=== PATIENT | female | born 1985 | race African-American/Black ===

== ENCOUNTER 2016-09-06 08:09 | Emergency (ER) | payer BC ==
[~2016-09-06] VITALS: Ht 175.3 cm; Wt 65.8 kg
--- NOTE | 2016-09-06 08:10 | NUR ---
PT PRESENTED TO THE ER WITH A C/O ABD PAIN, N/V SINCE 299. PT ARRIVED VIA WC AND WENT TO BED #3. PT WAS PLACED ON THE MONITOR AND CONTINUOUS PULSE OX. JOSE GLYNN AT THE BEDSIDE TRIAGING PT.
[2016-09-06] MEDS ORDERED: IV NS 0.9% 1,000 ML ONE (08:38)
[2016-09-06] MEDS ORDERED: ONDANSETRON HCL/PF 4 MG/2 ML VIAL ONE ×2 (08:39→09:25)
[2016-09-06] MEDS ORDERED: HALOPERIDOL LACTATE INJ 5 MG/ML VIAL ONE (08:39)
[2016-09-06] MEDS ORDERED: IV SET PRIMARY PUMP SET 1 EA INFUS.SET MC ONE (08:39)
[2016-09-06 08:47] LABS: BASOPHILS % (AUTO) 0.2 % (0.0-2.0); EOSINOPHILS # (AUTO) 0.1 /CMM (0.0-0.7); EOSINOPHILS % (AUTO) 1.1 % (0.0-6.0); HEMATOCRIT 39 % (33-45); HEMOGLOBIN 12.9 g/dL (11.5-14.8); LYMPHOCYTES # (AUTO) 2.4 /CMM (0.8-4.8); LYMPHOCYTES % (AUTO) 19.9 % (20.0-44.0); MEAN CORPUSCULAR HEMOGLOBIN 31 PG (26.0-33.0); MEAN CORPUSCULAR HGB CONC 33 g/dl (31.0-36.0); MEAN CORPUSCULAR VOLUME 94 fL (82-100); MONOCYTES # (AUTO) 0.6 /CMM (0.1-1.30); MONOCYTES % (AUTO) 5.1 % (2.0-12.0); NEUTROPHILS % (AUTO) 73.7 % (43.0-81.0); PLATELET COUNT (AUTO) 264 /CMM (150-450); RDW COEFFICIENT OF VARIATION 14.6 (11.5-15.0); RED BLOOD CELL COUNT(AUTO) 4.13 MIL/uL (4.0-5.2); WHITE BLOOD COUNT (AUTO) 12.2 K/uL (4.3-11.0)
[2016-09-06] MEDS ORDERED: HALOPERIDOL LACTATE INJ 5 MG/ML VIAL IV ONE (09:00)
[2016-09-06] MEDS ORDERED: IV NS 0.9% 1,000 ML BAG IV ONE (09:00)
[2016-09-06] MEDS ORDERED: ONDANSETRON HCL/PF 4 MG/2 ML VIAL IVP ONE (09:00)
[2016-09-06 09:16] LABS: CREATININE 0.8 mg/dL (0.6-1.3); POTASSIUM 3.6 mmol/L (3.5-5.1)
[2016-09-06 09:21] LABS: BILIRUBIN,DIRECT 0.1 mg/dL (0.0-0.2); BILIRUBIN,TOTAL 0.3 mg/dL (0.2-1.0); TOTAL PROTEIN, SERUM 7.6 g/dL (6.4-8.2)
[2016-09-06] MEDS ORDERED: KETOROLAC TROMETHAMINE INJ 30 MG/ML VIAL ONE (09:26)
--- NOTE | 2016-09-06 09:26 | NUR ---
PT IS GIVING A URINE SAMPLE.
[2016-09-06] MEDS ORDERED: KETOROLAC TROMETHAMINE INJ 30 MG/ML VIAL IV ONE (09:30)
[2016-09-06] MEDS ORDERED: ONDANSETRON HCL/PF - ER 4 MG/2 ML VIAL IV ONE (09:30)
--- NOTE | 2016-09-06 09:46 | NUR ---
IV removed. Catheter intact and site benign. Pressure and 4x4 applied to site. No bleeding noted. Patient discharged to home in stable condition. Written and verbal after care instructions given. Patient verbalizes understanding of instruction AND RX. PT LEFT VIA WC. VSS.
[2016-09-06 09:48] VITALS: BP 138/89
== END 2016-09-06 09:49 | disposition home or self-care (01) ==
LOC: ER 08:11
DX: G43.A0 Cyclical vomiting, in migraine, not intractable (principal); R11.0 Nausea; D21.9 Benign neoplasm of connective and other soft tissue, unspecified
CPT/HCPCS: 36415; 76700-TC; 80048-TC; 80076-TC; 83690-TC; 84703-TC; 85025-TC; A4606; J1630; J1885; J2405; J7030; Z7610

== ENCOUNTER 2017-01-14 22:28 | Emergency (ER) | payer BC, MEDICAID ==
[~2017-01-14] VITALS: Ht 167.6 cm; Wt 59.0 kg
[2017-01-14] MEDS ORDERED: ONDANSETRON HCL/PF 4 MG/2 ML VIAL IVP ONE (23:00)
[2017-01-14] MEDS ORDERED: IV NS 0.9% 1,000 ML BAG IV ONE (23:00)
[2017-01-14] MEDS ORDERED: ONDANSETRON HCL/PF 4 MG/2 ML VIAL ONE (23:02)
--- NOTE | 2017-01-14 23:10 | NUR ---
RN AT BEDSIDE TO MEDICATE PT.
[2017-01-14] MEDS ORDERED: LORAZEPAM INJ 2 MG/ML VIAL IV ONE (23:30)
[2017-01-15] MEDS ORDERED: METOCLOPRAMIDE HCL 10 MG/2 ML VIAL ONE (00:11)
[2017-01-15] MEDS ORDERED: LORAZEPAM INJ 2 MG/ML VIAL ONE (00:14)
--- NOTE | 2017-01-15 00:26 | NUR ---
PT MEDICATED BY RN PER ER MD ORDER.
[2017-01-15] MEDS ORDERED: METOCLOPRAMIDE HCL 10 MG/2 ML VIAL IV ONE (00:30)
--- NOTE | 2017-01-15 01:57 | NUR ---
IV removed. Catheter intact and site benign. Pressure and 4x4 applied to site. No bleeding noted. Patient discharged to home in stable condition. Written and verbal after care instructions given. Patient verbalizes understanding of instruction. ambulatory with a steady gait noted. pt s/o at bedside to take pt home. advice pt not to drive or operate any machinery due to pt was given ativan. pt verbalize understanding.
[2017-01-15 01:59] VITALS: BP 127/63
== END 2017-01-15 02:00 | disposition home or self-care (01) ==
LOC: ER 22:29
DX: R11.2 Nausea with vomiting, unspecified (principal)
CPT/HCPCS: 84703; 96361; 96374; 96375; 99284; A4606; J2060; J2405; J2765; J7030; Z7610